=== PATIENT | female | born 1990 | race Caucasian/White ===

== ENCOUNTER 2019-06-27 16:42 | Emergency (ER) | payer MEDICAID ==
[~2019-06-27] VITALS: Ht 154.9 cm; Wt 59.0 kg
[2019-06-27 16:42] VITALS: BP_SYST 113
--- NOTE | 2019-06-27 16:42 | NUR ---
Patient to ER hallway 1 to [facility] for evaluation. Side rails up. Report given to MADISON Barnett.
--- NOTE | 2019-06-27 16:43 | NUR ---
Patient is awake, alert, and oriented x4. She was brought in by JEAN PAUL Delatorre for medical clearance.
--- NOTE | 2019-06-27 16:50 | NUR ---
ER Dr. Damon at bedside examining patient.
[2019-06-27 17:02] VITALS: BP_SYST 113
--- NOTE | 2019-06-27 17:02 | NUR ---
Patient given written and verbal discharge instructions and verbalizes understanding. ER MD discussed with patient the results and treatment provided. Patient in stable condition. ID arm band removed. Patient educated on pain management and to follow up with PMD. Pain Scale 0/10. Opportunity for questions provided and answered. Medication side effect fact sheet provided.
== END 2019-06-27 17:02 ==
LOC: SED 16:42
DX: Z02.89 Encounter for other administrative examinations (principal); J45.909 Unspecified asthma, uncomplicated
CPT/HCPCS: 99283